=== PATIENT | female | born 1940 | race Caucasian/White ===

== ENCOUNTER 2017-10-15 15:40 | Inpatient (IN) | payer MEDICARE, OTHER ==
[2017-10-15] VITALS (13 sets, daily range): BP systolic 67–169; BP diastolic 42–92
[~2017-10-15] VITALS: Ht 134.6 cm; Wt 46.7 kg
[~2017-10-15 15:40] MED LIST: ADULT LOW DOSE81 MG PO; AMIODARONE 200200 MG PO; ASPIRIN 81MG TA81 MG PO; ATORVASTATIN CA10 MG PO; BED XX; CARAFATE1 GM PO; CARDIZEM CD 12120 MG PO; COMM1 XX; COREG3.125 MG PO; DAILY MULTIPLE PO; DUONEB 3 MG/3 ML3 ML IH; FAMOTIDINE 20MG20 MG PO; FLUTICASON0.05 MG/A1 NS; FLUTICASONE 50M16 GM; IPRATROPIUM BROM3 M1 IH; LASIX 20MG. TAB20 MG PO; LASIX20 MG PO; LISINOPRIL 10MG10 MG PO; LISINOPRIL 20MG20 MG PO; LISINOPRIL 5MG T5 MG PO; NICOTINE14 MG/24 H TD; NITROSTAT 0.4M0.4 MG SL; OXYGEN2 XX; PANTOPRAZOLE40 M1 PO; PREDNISONE20 MG PO; Pepcid20 MG PO; SINGULAIR 10 MG10 MG PO; SINGULAIR10 MG PO; WALK4 XX; XARELTO20 MG PO; ZOFRAN4 MG PO
--- NOTE | 2017-10-15 15:57 | Emergency Room Report ---
History of Present Illness Time Seen by [id number] Presenting Problem in Triage Pt arrived: Presenting Problem: Onset of symptoms date/time:/ or onset unknown for: Treatment Prior to Arrival: PREMISES TECHNICIAN Provided by: Sepsis Risk Assessment: Temp: B/P: MAP: Pulse: Resp: Recent fever? Clinical Suspician of Infection? Mental Status: Sepsis Risk: Have you (or family members/close friends) recently traveled outside the [place]? If Yes, where/when: Have you had exposure to infectious disease within the past month? TB? Other? Specify: Acute SOB, oxygen dependent, still smokes, called 911, [place] 98 per [place] [facility] [place] fever, productive cough, hx COPD, hx CHF, no calf pain. No vomiting. Has CP with cough. ALLERGIES Coded Allergies: phenobarbital (01/14/16) Home Medications Active Scripts Rivaroxaban (Xarelto) 20 MG PO DAILY #30 TAB Prov: 01/23/16 Amiodarone Hcl (Amiodarone 200MG) 200 MG PO DAILY #30 TAB Prov: 01/23/16 Prednisone (Prednisone 20MG Tab) 20 MG PO BID #10 TAB Prov: 01/23/16 Carvedilol (Coreg) 3.125 MG PO BID #60 TAB Prov: 01/23/16 ONDANSETRON HCL (Zofran 4MG Tab) 4 MG PO Q6HP PRN NAUSEA AND VOMITING #20 TAB Prov: 01/23/16 Device (Bed, Hospital) 1 UNIT XX UD #1 Prov: 01/23/16 Device (Walker, Rolling (4-Wheel)) 1 UNIT XX UD #1 Prov: 01/23/16 Device (Commode, Bedside) 1 UNIT XX UD #1 DEV Prov: 01/23/16 Reported Medications Device (Oxygen, Portable) 1 UNIT XX UD LISINOPRIL (Lisinopril) 10 MG PO DAILY ALBUTEROL-IPRATROPIUM (Iprat-Albut 0.5-3(2.5) MG/3 Ml) 3 ML IH QID Famotidine (Famotidine 20MG) 20 MG PO QHS FLUTICASONE PROPIONATE (Fluticasone 50MCG Nasal [place]) 1 SPRAY NA DAILY Furosemide (Lasix 20MG) 20 MG PO DAILY Aspirin (Adult Low Dose Aspirin EC) 81 MG PO DAILY Nitroglycerin (Nitrostat 0.4MG (1/150 Gr) Tabs #25) 0.4 MG SL [id number] PRN CHEST PAIN Montelukast Sodium (Singulair 10MG) 10 MG PO DAILY History Medical History General CAD? No Angina: Yes [place]: Yes Hypertension? Yes Hyperlipidemia? No CHF? No DVT? No PE? No COPD? Yes Asthma? Yes Anemia? No GERD? No Gastric ulcers? Yes GI Bleed? No Hernia? No Thyroid Problems? No Hypothyroidism? No CVA? No Seizures? No Diabetes? No Renal Insuffiency? No End Stage Renal Disease? No UTI? No Stones? No BPH? No GB Disease: Yes Nephritic Syndrome? No Asplenia? No Hepatitis? No Sickle Cell Disease? No Arthritis? No Migraines? No Cataracts? Yes Glaucoma? No MRSA? No HIV? No TB? No Anxiety? No Depression? No Cancer? No More? No Additional hx: 1. Atrial Fib 2. Allergic Rhinitis Immunization Hx DT/Tetanus Unknown Flu 2014-16FSN Pneumonia Received In Past Surgical Hx Previous Surgery?Y GALLBLADDER Family History Family Hx Diabetes No CAD No Hypertension No Hyperlipidemia No Cancer No TB No Social History Smoking Hx Packs/day < 1 Pack Alcohol Alcohol: No Review of Systems All Other Systems Reviewed and Negative Constitutional see HPI Respiratory see HPI Physical Exam Vital Signs Vital Signs Date Time Temp Pulse Resp B/P Pulse O2 O2 Flow FiO2 Ox Delivery Rate 10/15 1642 4 10/15 1642 4 10/15 1642 86 OXYGEN 4 10/15 1640 111 32 150/95 97 4 10/15 1557 97.4 110 34 160/92 92 4 General Appearance normal appearance, WD/WN, mild distress Eye Exam - bilateral eye normal exam, bilateral eye PERRL, bilateral eye EOMI Neck normal inspection, non-tender, supple, full range of motion Respiratory Status Yes: respiratory distress, trachea midline, chest symmetrical, non tender chest, use of accessory muscles, productive cough, non productive cough. No: tender on palpation, pain on inspiration, pain on expiration. Lung Sounds bilateral: decreased breath sounds. Cardiovascular normal exam, regular rate/rhythm, no peripheral edema, no gallop, no JVD, no murmur, no rub, normal peripheral pulses Gastrointestinal normal bowel sounds, normal exam, non tender, soft, no organomegaly, no pulsatile mass Extremities no calf tenderness, no pedal edema Strength 5 Upper Ext (L), 5 Upper Ext (R), 5 Lower Ext (L), 5 Lower Ext (R) Neurologic alert, normal exam, no motor/sensory deficits, oriented x 3 Glascow Coma Scale Glascow Coma Scale Response Value EYE response: 4 Spontaneously 4 MOTOR response: 6 OBEYS 6 VERBAL response: 5 Oriented & Converses 5 Total 15 Skin pallor Medical Decision Making LABS/Meds/Orders Pt receiving controlled substance in ED? No Results/Orders Laboratory Tests 10/15/17 1620: ABG pH 7.14 *L, ABG pCO2 (Temp Corrct 101.1 H, ABG pO2 (Temp Correct 60.9 L, ABG HCO3 33.6 H, ABG Total CO2 36.7 H, ABG O2 Sat (Calculated) 86.0 *L, ABG Base Excess 4.5 H, James Test ACCEPTABLE, Blood Gas Comments RIGHT RADIAL 10/15/17 1605: Influenza Type A Ag NOT DETECTED, Influenza Type B Ag NOT DETECTED 10/15/17 1546: Lactic Acid 1.9 10/15/17 1546: Sodium 139, Potassium 4.3, Chloride 98, Carbon Dioxide 39 H, BUN 14, Creatinine 0.7, Estimated Creat Clear 41 L, Estimated GFR (MDRD) 81, Glucose 180 H, Calcium 9.4, Total Bilirubin 0.8, AST 35, ALT 37, Alkaline Phosphatase 129 H, Creatine Kinase 58, CK-MB (CK-2) Rel Index 6.6 H, CK and CKMB Interp 3.8 H, Troponin I 0.58 H, Total Protein 8.0, Albumin 4.1, Globulin 3.9 H, Albumin/ Globulin Ratio 1.1, WBC 12.8 H, RBC 4.34, Hgb 14.6, Hct 45.8, MCV 105.5 H, RDW 12.1, Plt Count 220, MPV 10.5 H, Gran % 82.7 H, Gran # 10.6 H, Lymphocytes % 12.9, Monocytes % 4.0, Eosinophils % 0.1, Basophils % 0.4, Lymphocytes # 1.7, Monocytes # 0.5, Eosinophils # 0.0, Basophils # 0.1, PUBS MCHC 31.9, MCH 33.7 H Current Medication Orders Sig/Coral Start time Last Medication Dose Route Stop Time Status Admin Ceftriaxone Sodium 1 GM ONCE ONE 10/15 1700 DC Sodium Chloride 50 ML IV 10/15 1729 Albuterol 0 .STK-MED ONE 10/15 1618 DC INH Albuterol/Ipratropium 0 .STK-MED ONE 10/15 1618 DC INH Methylprednisolone 125 MG ONCE ONE 10/15 1545 DC 10/15 Sodium Succinate IV 10/15 1546 1549 Sodium Chloride 10 ML PRN PRN 10/15 1545 AC IV 10/16 1542 Methylprednisolone 0 .STK-MED ONE 10/15 1544 DC Sodium Succinate .ROUTE Orders Procedure Date/time Status Decision to admit 10/15 1700 Active LACTIC ACID 10/15 1646 Complete RT Pulse Oximetry, Provide 10/15 1641 Active RT O2 Installation/Change Set 10/15 1641 Active RT O2 Therapy, Monitor/Maintai 10/15 1641 Active RT BIPAP, Initial Setup/Change 10/15 1641 Active RT BIPAP, Monitor/Maintain 10/15 1641 Active RT Aerosol Treatment, Provide 10/15 1641 Active RT Aerosol Treatment, Provide 10/15 1641 Active INFLUENZA A&B ANTIGENS 10/15 1556 Complete ELECTROCARDIOGRAM REQUEST 10/15 1543 Active IV SALINE LOCK 10/15 1543 Active CULTURE, BLOOD 10/15 1543 Active CBC WITH AUTO DIFF 10/15 1543 Complete CARDIAC ENZYMES 10/15 1543 Complete CHEM 12 PROFILE 10/15 1543 Complete 12 LEAD EKG-GUI (INITIAL) 10/15 1540 Active CM/EKG CM/network services project manager Rhythm Sinus Tachycardia EKG no EKG for comparison, gross motion artifact; very tremulous, reviewed with Dr. Ferguson: he is not seeing ST elevation, agrees motion artifact; not candidate for laborer tree tapping at this time; watch serial trop XRAY/CT/US XRAY/CT/US XRAY chest XR interpretation by reviewed by me Xray Results abnormal, atelectasis at bases, L greater than R, suspect pneumonia Consult MD Physician Consult 1 Time Called 1636 Reason Pt. Condition Comments Dr. Ferguson reviewed EKG: recommends following troponins serially; not seeing elevation at this time; would not take to laborer tree tapping; recommends continuing pulmonary toilet. Physician Consult 2 Time Called 1637 Reason Pt. Condition, Admission Comments PCP Dr. [place] paged; initiated BiPap. family at bedside states son is POA and has texted that patient is DNI. Progress ED Progress Notes 1 Date 10/15/17 Time 1703 Comment will initiate Pt on Bipap. Family at bedside as well as d/w PCP: everyone agrees pt would not want to be intubated; will admit for pulmonary toilet short of intubation; patient in guarded condition and all aware. ABX initiated in ED. ED Progress Notes 2 Date 10/15/17 Time 1717 Comment Have repaged respiratory regarding stat placement of BiPap. They state on their way. Departure Departure Time of Disposition 1704 Disposition Still a Patient Clinical Impression Primary Impression: Respiratory distress Secondary Impressions: COPD exacerbation, Elevated troponin Condition STABLE Referrals Jack Langley MD (Family) ED Critical Care Critical Care Yes Time spent < 30 min Vital system(s) involved: Circulatory Failure (resp distress) I was present at bedside for Coordinating pt's care, Interpreting EKGs/Strips , During my initial exam, Reviewing lab results, Discussing pt condition, For re -examinations (consultations; d/w family) at [phone]
--- NOTE | 2017-10-15 15:57 | Emergency Room Report ---
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 Clinical Suspician of Infection? Mental Status: Sepsis Risk: Have you (or family members/close friends) recently traveled outside the [place]? If Yes, where/when: Have you had exposure to infectious disease within the past month? TB? Other? Specify: Acute SOB, oxygen dependent, still smokes, called 911, sats 98 per cent on arrival on [facility] [place]. Reports fever, productive cough, hx COPD, hx CHF, no calf pain. No vomiting. Has CP with cough. ALLERGIES Coded Allergies: phenobarbital (01/14/16) Home Medications Active Scripts Rivaroxaban (Xarelto) 20 MG PO DAILY #30 TAB Prov: 01/23/16 Amiodarone Hcl (Amiodarone 200MG) 200 MG PO DAILY #30 TAB Prov: 01/23/16 Prednisone (Prednisone 20MG Tab) 20 MG PO BID #10 TAB Prov: 01/23/16 Carvedilol (Coreg) 3.125 MG PO BID #60 TAB Prov: 01/23/16 ONDANSETRON HCL (Zofran 4MG Tab) 4 MG PO Q6HP PRN NAUSEA AND VOMITING #20 TAB Prov: 01/23/16 Device (Bed, Hospital) 1 UNIT XX UD #1 Prov: 01/23/16 Device (Walker, Rolling (4-Wheel)) 1 UNIT XX UD #1 Prov: 01/23/16 Device (Commode, Bedside) 1 UNIT XX UD #1 DEV Prov: 01/23/16 Reported Medications Device (Oxygen, Portable) 1 UNIT XX UD LISINOPRIL (Lisinopril) 10 MG PO DAILY ALBUTEROL-IPRATROPIUM (Iprat-Albut 0.5-3(2.5) MG/3 Ml) 3 ML IH QID Famotidine (Famotidine 20MG) 20 MG PO QHS FLUTICASONE PROPIONATE (Fluticasone 50MCG Nasal [place]) 1 SPRAY NA DAILY Furosemide (Lasix 20MG) 20 MG PO DAILY Aspirin (Adult Low Dose Aspirin EC) 81 MG PO DAILY Nitroglycerin (Nitrostat 0.4MG (1/150 Gr) Tabs #25) 0.4 MG SL [id number] PRN CHEST PAIN Montelukast Sodium (Singulair 10MG) 10 MG PO DAILY History Medical History General CAD? No Angina: Yes [place]: Yes Hypertension? Yes Hyperlipidemia? No CHF? No DVT? No PE? No COPD? Yes Asthma? Yes Anemia? No GERD? No Gastric ulcers? Yes GI Bleed? No Hernia? No Thyroid Problems? No Hypothyroidism? No CVA? No Seizures? No Diabetes? No Renal Insuffiency? No End Stage Renal Disease? No UTI? No Stones? No BPH? No GB Disease: Yes Nephritic Syndrome? No Asplenia? No Hepatitis? No Sickle Cell Disease? No Arthritis? No Migraines? No Cataracts? Yes Glaucoma? No MRSA? No HIV? No TB? No Anxiety? No Depression? No Cancer? No More? No Additional hx: 1. Atrial Fib 2. Allergic Rhinitis Immunization Hx DT/Tetanus Unknown Flu 2014-16FSN Pneumonia Received In Past Surgical Hx Previous Surgery?Y GALLBLADDER Family History Family Hx Diabetes No CAD No Hypertension No Hyperlipidemia No Cancer No TB No Social History Smoking Hx Packs/day < 1 Pack Alcohol Alcohol: No Review of Systems All Other Systems Reviewed and Negative Constitutional see HPI Respiratory see HPI Physical Exam Vital Signs Vital Signs Date Time Temp Pulse Resp B/P Pulse O2 O2 Flow FiO2 Ox Delivery Rate 10/15 1642 4 10/15 1642 4 10/15 1642 86 OXYGEN 4 10/15 1640 111 32 150/95 97 4 10/15 1557 97.4 110 34 160/92 92 4 General Appearance normal appearance, WD/WN, mild distress Eye Exam - bilateral eye normal exam, bilateral eye PERRL, bilateral eye EOMI Neck normal inspection, non-tender, supple, full range of motion Respiratory Status Yes: respiratory distress, trachea midline, chest symmetrical, non tender chest, use of accessory muscles, productive cough, non productive cough. No: tender on palpation, pain on inspiration, pain on expiration. Lung Sounds bilateral: decreased breath sounds. Cardiovascular normal exam, regular rate/rhythm, no peripheral edema, no gallop, no JVD, no murmur, no rub, normal peripheral pulses Gastrointestinal normal bowel sounds, normal exam, non tender, soft, no organomegaly, no pulsatile mass Extremities no calf tenderness, no pedal edema Strength 5 Upper Ext (L), 5 Upper Ext (R), 5 Lower Ext (L), 5 Lower Ext (R) Neurologic alert, normal exam, no motor/sensory deficits, oriented x 3 Glascow Coma Scale Glascow Coma Scale Response Value EYE response: 4 Spontaneously 4 MOTOR response: 6 OBEYS 6 VERBAL response: 5 Oriented & Converses 5 Total 15 Skin pallor Medical Decision Making LABS/Meds/Orders Pt receiving controlled substance in ED? No Results/Orders Laboratory Tests 10/15/17 1620: ABG pH 7.14 *L, ABG pCO2 (Temp Corrct 101.1 H, ABG pO2 (Temp Correct 60.9 L, ABG HCO3 33.6 H, ABG Total CO2 36.7 H, ABG O2 Sat (Calculated) 86.0 *L, ABG Base Excess 4.5 H, James Test ACCEPTABLE, Blood Gas Comments RIGHT RADIAL 10/15/17 1605: Influenza Type A Ag NOT DETECTED, Influenza Type B Ag NOT DETECTED 10/15/17 1546: Lactic Acid 1.9 10/15/17 1546: Sodium 139, Potassium 4.3, Chloride 98, Carbon Dioxide 39 H, BUN 14, Creatinine 0.7, Estimated Creat Clear 41 L, Estimated GFR (MDRD) 81, Glucose 180 H, Calcium 9.4, Total Bilirubin 0.8, AST 35, ALT 37, Alkaline Phosphatase 129 H, Creatine Kinase 58, CK-MB (CK-2) Rel Index 6.6 H, CK and CKMB Interp 3.8 H, Troponin I 0.58 H, Total Protein 8.0, Albumin 4.1, Globulin 3.9 H, Albumin/ Globulin Ratio 1.1, WBC 12.8 H, RBC 4.34, Hgb 14.6, Hct 45.8, MCV 105.5 H, RDW 12.1, Plt Count 220, MPV 10.5 H, Gran % 82.7 H, Gran # 10.6 H, Lymphocytes % 12.9, Monocytes % 4.0, Eosinophils % 0.1, Basophils % 0.4, Lymphocytes # 1.7, Monocytes # 0.5, Eosinophils # 0.0, Basophils # 0.1, PUBS MCHC 31.9, MCH 33.7 H Current Medication Orders Sig/Coral Start time Last Medication Dose Route Stop Time Status Admin Ceftriaxone Sodium 1 GM ONCE ONE 10/15 1700 DC Sodium Chloride 50 ML IV 10/15 1729 Albuterol 0 .STK-MED ONE 10/15 1618 DC INH Albuterol/Ipratropium 0 .STK-MED ONE 10/15 1618 DC INH Methylprednisolone 125 MG ONCE ONE 10/15 1545 DC 10/15 Sodium Succinate IV 10/15 1546 1549 Sodium Chloride 10 ML PRN PRN 10/15 1545 AC IV 10/16 1542 Methylprednisolone 0 .STK-MED ONE 10/15 1544 DC Sodium Succinate .ROUTE Orders Procedure Date/time Status Decision to admit 10/15 1700 Active LACTIC ACID 10/15 1646 Complete RT Pulse Oximetry, Provide 10/15 1641 Active RT O2 Installation/Change Set 10/15 1641 Active RT O2 Therapy, Monitor/Maintai 10/15 1641 Active RT BIPAP, Initial Setup/Change 10/15 1641 Active RT BIPAP, Monitor/Maintain 10/15 1641 Active RT Aerosol Treatment, Provide 10/15 1641 Active RT Aerosol Treatment, Provide 10/15 1641 Active INFLUENZA A&B ANTIGENS 10/15 1556 Complete ELECTROCARDIOGRAM REQUEST 10/15 1543 Active IV SALINE LOCK 10/15 1543 Active CULTURE, BLOOD 10/15 1543 Active CBC WITH AUTO DIFF 10/15 1543 Complete CARDIAC ENZYMES 10/15 1543 Complete CHEM 12 PROFILE 10/15 1543 Complete 12 LEAD EKG-GUI (INITIAL) 10/15 1540 Active CM/EKG CM/country printer Rhythm Sinus Tachycardia EKG no EKG for comparison, gross motion artifact; very tremulous, reviewed with Dr. Ferguson: he is not seeing ST elevation, agrees motion artifact; not candidate for cardiac cath lab manager at this time; watch serial trop XRAY/CT/US XRAY/CT/US XRAY chest XR interpretation by reviewed by me Xray Results abnormal, atelectasis at bases, L greater than R, suspect pneumonia Consult MD Physician Consult 1 Time Called 1636 Reason Pt. Condition Comments Dr. Ferguson reviewed EKG: recommends following troponins serially; not seeing elevation at this time; would not take to cardiac cath lab manager; recommends continuing pulmonary toilet. Physician Consult 2 Time Called 1637 Reason Pt. Condition, Admission Comments PCP Dr. Edison paged; initiated BiPap. family at bedside states son is POA and has texted that patient is DNI. Progress ED Progress Notes 1 Date 10/15/17 Time 1703 Comment will initiate Pt on Bipap. Family at bedside as well as d/w PCP: everyone agrees pt would not want to be intubated; will admit for pulmonary toilet short of intubation; patient in guarded condition and all aware. ABX initiated in ED. ED Progress Notes 2 Date 10/15/17 Time 1717 Comment Have repaged respiratory regarding stat placement of BiPap. They state on their way. Departure Departure Time of Disposition 1704 Disposition Still a Patient Clinical Impression Primary Impression: Respiratory distress Secondary Impressions: COPD exacerbation, Elevated troponin Condition STABLE Referrals Jack Langley MD (Family) ED Critical Care Critical Care Yes Time spent < 30 min Vital system(s) involved: Circulatory Failure (resp distress) I was present at bedside for Coordinating pt's care, Interpreting EKGs/Strips , During my initial exam, Reviewing lab results, Discussing pt condition, For re -examinations (consultations; d/w family) at 2053
[2017-10-15 16:03] LABS: HEMOGLOBIN 14.6 g/dL (12.2-16.2); LYMPH # 1.7 K/mm3 (0.7-4.5); LYMPH % 12.9 % (10-50.0)
--- OUTSIDE RECORDS SUMMARY | 2017-10-15 16:13 | External Medical Summary Rpt ---
Author Author OLIV[address], [employer] Organization [employer] Address Unknown Phone Unavailable
--- OUTSIDE RECORDS SUMMARY | 2017-10-15 16:13 | External Medical Summary Rpt | CCD ---
Author Author OLIVA Address Unknown Phone [email or web address] Purpose Continuity of Care Document - through 2016
--- OUTSIDE RECORDS SUMMARY | 2017-10-15 16:13 | External Medical Summary Rpt | CCD ---
Author Author , DEBBIE BAPTISTE Address Unknown Phone [email or web address] Immunization Name Date Rout CVX Reac Dose Comm Prov Is Faci e tion ent ider Refu lity Give sed n Infl 08-1 Intr 135 0.5 Hist D049 No D049 uenz 5-20 amus mL oric 01 01 a, 17 cula al High r Info rmat Dose ion - Sour ce Unsp ecif ied
--- OUTSIDE RECORDS SUMMARY | 2017-10-15 16:13 | External Medical Summary Rpt | CCD ---
Author Author OLIVA Address Unknown Phone Purpose Continuity of Care Document - through 2016
--- OUTSIDE RECORDS SUMMARY | 2017-10-15 16:13 | External Medical Summary Rpt | CCD ---
Author Author [employer] Organization [employer] Address Unknown Phone Unavailable Purpose Continuity of Care Document - through 2016
--- OUTSIDE RECORDS SUMMARY | 2017-10-15 16:13 | External Medical Summary Rpt | CCD ---
Author Author , DEBBIE BAPTISTE Address Unknown Phone [email or web address] Immunization Name Date Rout CVX Reac Dose Comm Prov Is Faci e tion ent ider Refu lity Give sed n Infl 08-1 Intr 135 0.5 Hist D049 No D049 uenz 5-20 amus mL oric 01 01 a, 17 cula al High r Info rmat Dose ion - Sour ce Unsp ecif ied
[2017-10-15 16:37] LABS: ARTERIAL PO2 60.9 MMHG (80-100)
[2017-10-15 16:38] LABS: ALLEN'S TEST ACCEPTABLE; ARTERIAL ABE 4.5 MMOL/L (-2.4-+2.3); ARTERIAL TCO2 36.7 MMOL/L (23-27); OXYGEN 36%
--- OUTSIDE RECORDS SUMMARY | 2017-10-15 17:07 | External Medical Summary Rpt | CCD ---
Author Author , DEBBIE BAPTISTE Address Unknown Phone [email or web address] Immunization Name Date Rout CVX Reac Dose Comm Prov Is Faci e tion ent ider Refu lity Give sed n Infl 08-1 Intr 135 0.5 Hist D049 No D049 uenz 5-20 amus mL oric 01 01 a, 17 cula al High r Info rmat Dose ion - Sour ce Unsp ecif ied
--- OUTSIDE RECORDS SUMMARY | 2017-10-15 17:07 | External Medical Summary Rpt | CCD ---
Author Author , DEBBIE BAPTISTE Address Unknown Phone [email or web address] Immunization Name Date Rout CVX Reac Dose Comm Prov Is Faci e tion ent ider Refu lity Give sed n Infl 08-1 Intr 135 0.5 Hist D049 No D049 uenz 5-20 amus mL oric 01 01 a, 17 cula al High r Info rmat Dose ion - Sour ce Unsp ecif ied
--- OUTSIDE RECORDS SUMMARY | 2017-10-15 17:07 | External Medical Summary Rpt | CCD ---
Author Author , DEBBIE BAPTISTE Address Unknown Phone [email or web address] Purpose Continuity of Care Document - 10-15-2017 through 2016 Results Labs Lab Lab Date Result Refere Interp Status Commen Order Detail nces retati t Range on Gas panel in Arterial blood (10-15-2017 16:20) Arteria ACCEPTA complet l 017 BLE ed patency 16:20 Wrist artery --pre arteria l punctur e SOURCE RIGHT complet 017 RADIAL ed 16:20 Influenza virus A+B Ag [Presence] in Unspecified specimen (10-15-2017 16:05) Influen NOT NOT complet za 017 DETECTE DETECTD ed virus A 16:05 D Ag [Presen ce] in Unspeci fied specime n Influen NOT NOT complet za 017 DETECTE DETECTD ed virus B 16:05 D Ag [Presen ce] in Unspeci fied specime n
--- OUTSIDE RECORDS SUMMARY | 2017-10-15 17:07 | External Medical Summary Rpt ---
Author Author BINTASONYA Way, [employer] Organization [employer] Address Unknown Phone Unavailable Results Gas panel in Arterial blood Observa Value Referen Units Interpr Notes Date tion ce etation Range Base -2.4-+2.3 MMOL/L High No Oct 15 excess in informati 2017 4:20 Arterial on in PM blood source data Arteria ACCEPTA No No No No Oct 15 l BLE informa informa informa informa 2017 patency tion in tion in tion in tion in 4:20 PM Wrist source source source source artery data data data data --pre arteria l punctur e Bicarbona 22.0 - MMOL/L High No Oct 15 te 26.0 informati 2016 4:20 [Moles/vo on in PM lume] in source Arterial data blood Oxygen No No No No Oct 15 content informati informati informati informati 2017 4:20 in on in on in on in on in PM Arterial source source source source blood data data data data Carbon 35.0 - MMHG High Oct 15 dioxide 45.0 2016 4:20 [Partial CRITICAL PM pressure] RESULTS in Arterial RESU blood LTS CALLED TO: URIEL ROE 10/15/17 1637 Veronica Cordoba [place] pH of 7.35 - MMOL/L Low alert Oct 15 Arterial 7.45 2016 4:20 blood CRITICAL PM RESULTS RESU LTS CALLED TO: URIEL MONTANA 10/15/17 1637 Veronica Cordoba [place] Oxygen 80 - 100 MMHG Low No Oct 15 [Partial informati 2017 4:20 pressure] on in PM in source Arterial data blood Oxygen 90 - 100 % Low alert No Oct 15 saturatio informati 2016 4:20 n.calcula on in PM frank from source oxygen data partial pressure in Arterial blood SOURCE RIGHT No No No No Oct 15 RADIAL informa informa informa informa 2017 tion in tion in tion in tion in 4:20 PM source source source source data data data data Carbon 23 - 27 MMOL/L High No Oct 15 dioxide, informati 2017 4:20 total on in PM [Moles/vo source lume] in data Arterial blood Influenza virus A+B Ag [Presence] in Unspecified specimen Observa Value Referen Units Interpr Notes Date ti ce etation Range Influen NOT NOT No No No Oct 15 za DETECTE DETECTD informa informa informa 2017 virus A D tion in tion in tion in 4:05 PM Ag source source source [Presen data data data ce] in Unspeci fied specime n Influen NOT NOT No No No Oct 15 za DETECTE DETECTD informa informa informa 2017 virus B D tion in tion in tion in 4:05 PM Ag source source source [Presen data data data ce] in Unspeci fied specime n Cardiac enzymes Observa Value Referen Units Interpr Notes Date tion ce etation Range Creatine 0 - 4.0 U/L High No Oct 15 kinase.MB informati 2016 3:46 /Creatine on in PM source kinase.to data ria [Ratio] in Serum or Plasma Creatine 0.0 - 3.6 ng/mL High No Oct 15 kinase.MB informati 2016 3:46 on in PM [Mass/vol source ume] in data Serum or Plasma Creatine 26 - 192 U/L Normal No Oct 15 kinase informati 2017 3:46 [Enzymati on in PM c source activity/ data volume] in Serum or Plasma Troponin 0.00 - ng/mL High Oct 15 I.cardiac 0.06 2016 3:46 CRITICAL PM [Mass/vol RESULTS ume] in Serum or RESU Plasma LTS CALLED TO: DENAE 10/15/17 1628 Cracraft, Deepa> 0.5 IS CONSISTEN T WITH MYOCARDIA L ISCHEMIA OR INFARCTIO N Comprehensive metabolic 2000 panel in Serum or Plasma Observa Value Referen Units Interpr Notes Date tion ce etation Range Albumin/G 1.1 - 1.8 No Normal No Oct 15 lobulin informati informati 2016 3:46 [Mass on in on in PM ratio] in source source Serum or data data Plasma Albumin 3.4 - 5.0 gm/dL Normal No Oct 15 [Mass/vol informati 2016 3:46 ume] in on in PM Serum or source Plasma data Alkaline 46 - 116 U/L High No Oct 15 phosphata informati 2016 3:46 se on in PM [Enzymati source c data activity/ volume] in Serum or Plasma Bilirubin 0.2 - 1.0 mg/dL Normal No Oct 15 .total informati 2016 3:46 [Mass/vol on in PM ume] in source Serum or data Plasma Urea 7 - 18 mg/dL Normal No Oct 15 nitrogen informati 2016 3:46 [Mass/vol on in PM ume] in source Serum or data Plasma Calcium 8.5 - mg/dL Normal No Oct 15 [Mass/vol 10.1 informati 2016 3:46 ume] in on in PM Serum or source Plasma data Chloride 98 - 107 mmoL/L Normal Oct 15 [Moles/vo informati 2016 3:46 lume] in on in PM Serum or source Plasma data Carbon 21.0 - mmoL/L High No Oct 15 dioxide, 32.0 informati 2017 3:46 total on in PM [Moles/vo source lume] in data Serum or Plasma Creatinin 0.55 - mg/dL Normal No Oct 15 e 1.02 informati 2016 3:46 [Mass/vol on in PM ume] in source Serum or data Plasma Creatinin 50 - 200 ML/MIN Low No Oct 15 e renal informati 2016 3:46 clearance on in PM source predicted data by Cockcroft -Gault formula Estimated 59- ML/MIN No REFERENCE Oct 15 informati RANGE: 2017 3:46 glomerula on in >60 PM r source ML/MIN/1. filtratio data 73 SQUARE n rate METERSIf (GF this patient is -A merican, then multiply theresult by 1.210. Globulin 1.3 - 3.2 gm/dL High No Oct 15 [Mass/vol informati 2016 3:46 ume] in on in PM Serum source data Glucose 74 - 106 mg/dL High No Oct 15 [Mass/vol informati 2016 3:46 ume] in on in PM Serum or source Plasma data Potassium 3.5 - 5.1 mmoL/L Normal Oct 152016 3:46 [Moles/vo on in PM lume] in source Serum or data Plasma Sodium 136 - 145 mmoL/L Normal Oct 15 [Moles/vo 2016 3:46 lume] in on in PM Serum or source Plasma data Aspartate 15 - 37 U/L Normal Oct 152016 3:46 aminotran on in PM sferase source [Enzymati data c activity/ volume] in Serum or Plasma Alanine 12 - 78 U/L Normal Oct 15 aminotran 2016 3:46 sferase on in PM [Enzymati source c data activity/ volume] in Serum or Plasma Protein 6.4 - 8.2 gm/dL Normal Oct 15 [Mass/vol 2016 3:46 ume] in on in PM Serum or source Plasma data CBC W Auto Differential panel in Blood Observa Value Referen Units Interpr Notes Date tion ce etation Range Basophils 0 - 0.2 K/MM3 Normal Oct 152016 3:46 [#/volume on in PM ] in source Blood by data Automated count Basophils 0.1 - 2.0 % Normal No Oct 152016 3:46 leukocyte on in PM s in source Blood by data Automated count Eosinophi 0.0 - 0.4 K/mm3 Normal Oct 15 ls 2016 3:46 [#/volume on in PM ] in source Blood by data Automated count Eosinophi 0.1 - % Normal Oct 15 ls/100 12.0 ati 2016 3:46 leukocyte on in PM s in source Blood by data Automated count Granulocy 1.8 - 7.8 K/mm3 High Oct 15 micah ati 2016 3:46 [#/volume on in PM ] in source Blood by data Automated count Granulocy 37.0 - % High Oct 15 micah/100 80.0 ati 2016 3:46 leukocyte on in PM s in source Blood by data Automated count Hematocri 37.0 - % Normal Oct 15 t [Volume 47.0 2016 3:46 on in PM Fraction] source of Blood data Hemoglobi 12.2 - g/dL Normal Oct 15 n 16.2 ati 2016 3:46 [Mass/vol on in PM ume] in source Blood data Lymphocyt 0.7 - 4.5 K/mm3 Normal No Oct 15 es informati 2016 3:46 [#/volume on in PM ] in source Unspecifi data ed specimen by Automated count Lymphocyt 10 - 50.0 % Normal No Oct 15 es informati 2016 3:46 [#/volume on in PM ] in source Unspecifi data ed specimen by Automated count Erythrocy 27 - 31.2 pg High No Oct 15 te mean informati 2016 3:46 corpuscul on in PM ar source hemoglobi data n [Entitic mass] Erythrocy 31.8 - g/dl Normal No Oct 15 te mean 35.4 informati 2016 3:46 corpuscul on in PM ar source hemoglobi data n concentra tion [Mass/vol ume] by Automated count Erythrocy 82.2 - fl High No Oct 15 te mean 97.8 informati 2016 3:46 corpuscul on in PM ar volume source [Entitic data volume] by Automated count Monocytes 0.1 - 1.0 K/mm3 Normal No Oct 15 informati 2016 3:46 [#/volume on in PM ] in source Blood by data Automated count Monocytes 1.7 - 9.3 % Normal No Oct 15 /100 informati 2017 3:46 leukocyte on in PM s in source Blood by data Automated count Platelet 7.4 - fl High Oct 15 mean 10.4 informati 2017 3:46 volume on in PM [Entitic source volume] data in Blood by Automated count Platelets 142 - 424 K/mm3 No No Oct 15 informati informati 2017 3:46 [#/volume on in on in PM ] in source source Blood data data Erythrocy 4.2 - 5.4 M/mm3 Normal No Oct 15 micah informati 2017 3:46 [#/volume on in PM ] in source Amniotic data fluid Erythrocy 11.5 - % Normal No Oct 15 te 17.5 informati 2016 3:46 distribut on in PM ion width source [Entitic data volume] by Automated count Leukocyte 4.8 - K/MM3 High No Oct 15 s 10.8 informati 2016 3:46 [#/volume on in PM ] in source Blood data
--- OUTSIDE RECORDS SUMMARY | 2017-10-15 17:07 | External Medical Summary Rpt | CCD ---
Author Author , DEBBIE BAPTISTE Address Unknown Phone [email or web address] Purpose Continuity of Care Document - 10-15-2017 [...]
--- NOTE | 2017-10-15 17:21 | RADIOLOGY REPORT PS360 ---
CHEST-PORTABLE HISTORY: COPD very SOB cough w/ sputumCOPD Patient Age: 77 years: Female Ordering Physician: Johanna Rodriguez MD TECHNIQUE: AP portable chest COMPARISON :01/14/2016 CXR & 01/16/2016 FINDINGS COPD hyperexpansion. Flattened diaphragm. . There is a slight accentuation of markings toward the left base as well as right. This mainly reflects the higher contrast technique. Doubt early infiltrate and favor more likely chronic changes but if symptoms progress consider follow-up. The upper lung perkins are hyperexpanded and appear stable. The heart is upper normal in size robin and mediastinal structures satisfactory. Chest wall intact no pneumothorax no pleural effusion. IMPRESSION: COPD. Hyperexpansion Emphysema Nothing definitely acute. Slight coarsening markings the lung bases most likely reflecting chronic changes noted above
[2017-10-15 19:34] LABS: ARTERIAL ABE 1.8 MMOL/L (-2.4-+2.3); ARTERIAL PO2 122.2 MMHG (80-100); ARTERIAL TCO2 33.8 MMOL/L (23-27)
[2017-10-15 20:35] LABS: URINE BLOOD TRACE-INTACT (NEG)
[2017-10-15 20:41] LABS: URINE BILIRUBIN - DIPSTICK 1+ (NEG)
[2017-10-16] VITALS (32 sets, daily range): BP systolic 71–128; BP diastolic 47–76
[2017-10-16 06:05] LABS: HEMOGLOBIN 13.3 g/dL (12.2-16.2); LYMPH # 1.1 K/mm3 (0.7-4.5); LYMPH % 5.7 % (10-50.0)
[2017-10-16 06:22] LABS: NEUTROPHILS 64 % (42-76)
--- NOTE | 2017-10-16 08:49 | HISTORY AND PHYSICAL REPORT ---
History and Physical ([facility]) Date of admission: 10/15/17 Chief complaint: SOA, CP History: History of Present Illness: Ms. Aflonso is a 77yo female with oxygen dependent COPD. She still smokes. Her daughter states she had been feeling poorly for the past few days. Yesterday around 4:30am she called her daughter to come and sit with her because she was scared. Her daughter states she had to go to work so her granddaughter came to sit with her. When she got home from work around 4:30pm, the patient's status declined rapidly. She started complaining that "it hurt" and held her chest and then got extremely SOA and became nonresponsive. Her family called 911 and she was transported to the ER. She had had a LGF and productive cough. She was evaluated in the ER and her cardiac enzymes were elevated, her CO2 was elevated, and her WBC was elevated. She was started on abx and BIPAP. Dr. Ferguson was consulted but stated he would not take her to the clinical laboratory assistant with her respiratory status. Her daugther states she has not been awake all night. Past Medical History: Medical History: CAD? No Angina: Yes CT: Yes Hypertension? Yes Hyperlipidemia? No CHF? Yes DVT? No PE? No COPD? Yes Asthma? Yes Anemia? No GERD? No Gastric ulcers? Yes GI Bleed? No Hernia? No Thyroid Problems? No Hypothyroidism? No CVA? No Seizures? No Diabetes? No Renal Insuffiency? No UTI? No Stones? No BPH? No GB Disease: Yes Nephritic Syndrome? No Asplenia? No Hepatitis? No Sickle Cell Disease? No Arthritis? No Migraines? No Cataracts? Yes Glaucoma? No MRSA? No HIV? No TB? No Anxiety? No Depression? No Cancer? No More? No Additional hx: 1. Atrial Fib 2. Allergic Rhinitis Surgical history: Previous Surgery?Y GALLBLADDER PUD Medications: Active Scripts Carvedilol (Coreg) 3.125 MG PO BID #60 TAB Prov: 01/23/16 Device (Bed, Hospital) 1 UNIT XX UD #1 Prov: 01/23/16 Device (Walker, Rolling (4-Wheel)) 1 UNIT XX UD #1 Prov: 01/23/16 Device (Commode, Bedside) 1 UNIT XX UD #1 DEV Prov: 02/25/16 Reported Medications Device (Oxygen, Portable) 1 UNIT XX UD LISINOPRIL (Lisinopril) 10 MG PO DAILY Famotidine (Famotidine 20MG) 20 MG PO QHS Aspirin (Adult Low Dose Aspirin EC) 81 MG PO DAILY Nitroglycerin (Nitrostat 0.4MG (1/150 Gr) Tabs #25) 0.4 MG SL [id number] PRN CHEST PAIN Potassium Chloride (Klor-Con M20) 20 MEQ PO DAILY Furosemide (Lasix 80MG) 80 MG PO DAILY LEVOTHYROXINE SOD (Levothyroxine 0.025MG) 0.025 MG PO DAILY SOTALOL HCL (Sotalol) 80 MG PO BID Pantoprazole Sodium (Pantoprazole 40MG) 40 MG PO DAILY Montelukast Sodium (Singulair 10MG) 10 MG PO DAILY Allergies: Coded Allergies: phenobarbital (01/14/16) Family History: Family history: Postive for: CAD. Negative for: DM. Social History: Smoking Hx Tobacco: Yes Smoker: Current Every Day Smoker Type: Cigarettes Packs/day: 1 1/2 - 2 Packs Are you exposed to second hand No Alcohol: Alcohol: No Hx of Drug Use: Drug Use? No Review of Systems: Patient unresponsive? Yes (ROS obtained from daughter) Constitutional Positive for: fatigue, lethargy, malaise, weak. ENT Positive for: nasal congestion. No: sore throat. Cardiovascular Positive for: chest pain, palpitations. No: edema. Respiratory Positive for: shortness of air, productive cough (sputum), wheezing. GI Positive for: nausea. No: abdominal pain, diarrhea, vomitting. (female) No: frequency, hematuria. Neurological Positive for: weakness. Musculoskeletal Positive for: joint pain (back and hips). Physical Exam: Vital signs: 1ST Vital Signs Result Date Time Pulse Ox 92 10/15 1557 B/P 160/92 10/15 1557 O2 Flow Rate 4 10/15 1557 Temp 97.4 10/15 1557 Pulse 110 10/15 1557 Resp 34 10/15 1557 O2 Delivery OXYGEN 10/15 1642 Exam: General appearance: Pt not responsive, on BIPAP Eyes: PERRLA ENT: nose normal, pharynx normal, dry mucous membranes Neck: non-tender, supple Cardiovascular: regular rate & rhythm Respiratory: diminished breath sounds bilaterally ABD: non-distended, normal bowel sounds, no rebound, soft, no tenderness, no guarding Extremities: no peripheral edema Skin: normal color Lab data: Labs: Laboratory Tests 10/16/17 0545: Sodium 141, Potassium 4.6, Chloride 103, Carbon Dioxide 33 H, BUN 24 H, Creatinine 0.6, Estimated Creat Clear 53, Estimated GFR (MDRD) 96, Glucose 157 H, Calcium 8.9, WBC 19.1 H, RBC 3.98 L, Hgb 13.3, Hct 43.0, MCV 107.9 H, RDW 12.2, Plt Count 184, MPV 11.0 H, Gran % 90.6 H, Gran # 17.3 H, Total Counted 100, Lymphocytes % 5.7 L, Monocytes % 3.4, Eosinophils % 0.1, Basophils % 0.2, Neutrophils 64, Band Neutrophils 25 H, Lymphocytes (Manual) 10, Lymphocytes # 1.1, Monocytes (Manual) 1 L, Monocytes # 0.7, Eosinophils # 0.0, Basophils # 0.0, Platelet Estimate NORMAL, Polychromasia SL., Hypochromasia 2+, Macrocytosis 2+, PUBS MCHC 31.0 L, MCH 33.4 H 10/15/17 1930: Urine Color ISSAC, Urine Appearance SL CLOUDY, Urine pH 5.5, Ur Specific [place] >= 1.030, Urine Protein 2+ H, Urine Ketones NEGATIVE, Urine Blood TRACE-INTACT, Urine Nitrate POSITIVE H, Urine Bilirubin 1+ H, Urine Urobilinogen 2.0, Ur Leukocyte Esterase NEGATIVE, Urine RBC 3-5, Urine WBC 5-10, Amorphous Sediment 4 +, Urine Bacteria TRACE, Urine Mucus 4+, Urine Glucose NEGATIVE 10/15/17 1926: ABG pH 7.14 *L, ABG pCO2 (Temp Corrct 93.9 H, ABG pO2 (Temp Correct 122.2 H, ABG HCO3 30.9 H, ABG Total CO2 33.8 H, ABG O2 Sat (Calculated) 97.4, ABG Base Excess 1.8 10/15/17 1904: Troponin I 1.86 H 10/15/17 1620: ABG pH 7.14 *L, ABG pCO2 (Temp Corrct 101.1 H, ABG pO2 (Temp Correct 60.9 L, ABG HCO3 33.6 H, ABG Total CO2 36.7 H, ABG O2 Sat (Calculated) 86.0 *L, ABG Base Excess 4.5 H, James Test ACCEPTABLE, Blood Gas Comments RIGHT RADIAL 10/15/17 1605: Influenza Type A Ag NOT DETECTED, Influenza Type B Ag NOT DETECTED 10/15/17 154: Lactic Acid 1.9 10/15/17 154: Sodium 139, Potassium 4.3, Chloride 98, Carbon Dioxide 39 H, BUN 14, Creatinine 0.7, Estimated Creat Clear 41 L, Estimated GFR (MDRD) 81, Glucose 180 H, Calcium 9.4, Total Bilirubin 0.8, AST 35, ALT 37, Alkaline Phosphatase 129 H, Creatine Kinase 58, CK-MB (CK-2) Rel Index 6.6 H, CK and CKMB Interp 3.8 H, Troponin I 0.58 H, Total Protein 8.0, Albumin 4.1, Globulin 3.9 H, Albumin/ Globulin Ratio 1.1, WBC 12.8 H, RBC 4.34, Hgb 14.6, Hct 45.8, MCV 105.5 H, RDW 12.1, Plt Count 220, MPV 10.5 H, Gran % 82.7 H, Gran # 10.6 H, Lymphocytes % 12.9, Monocytes % 4.0, Eosinophils % 0.1, Basophils % 0.4, Lymphocytes # 1.7, Monocytes # 0.5, Eosinophils # 0.0, Basophils # 0.1, PUBS MCHC 31.9, MCH 33.7 H Microbiology 10/15 1930 URINE CATH: Urine Culture - RES 10/15 1546 BLOOD: Anaerobic Blood Culture - RECD 10/15 1546 BLOOD: Aerobic Blood Culture - RECD 10/15 1546 BLOOD: Anaerobic Blood Culture - RECD 10/15 1546 BLOOD: Aerobic Blood Culture - RECD Radiology results: Results: CXR - COPD. Hyperexpansion Emphysema. Nothing definitely acute. Slight coarsening markings the lung bases most likely reflecting chronic changes noted above Diagnosis(es): 1. Acute respiratory failure with hypercapnia Status: Acute 2. Elevated troponin Status: Acute 3. Leukocytosis Status: Acute 4. Chronic obstructive lung disease Status: Chronic Plan: Will continue BIPAP as ABG has improved since she was placed on BIPAP. Will continue abx. Patient's family does not want her to be intubated. Will monitor for now. (Diana Tabares) Diagnosis(es): 1. Acute respiratory failure with hypercapnia Status: Acute 2. Elevated troponin Status: Acute 3. Acute non-ST segment elevation myocardial infarction Status: Chronic 4. Leukocytosis Status: Acute 5. Chronic obstructive lung disease Status: Chronic 6. Altered mental status 7. Acute respiratory acidosis 8. Coronary atherosclerosis Status: Chronic 9. History of atrial fibrillation 10. CHF (congestive heart failure), NYHA class IV Status: Resolved 11. Tobacco use Status: Chronic 12. GERD (gastroesophageal reflux disease) Plan: Patient seen and agree with above note. Discussed poor prognosis with family. Continue current treatment. (Jack Langley MD) at 0901 at 0907
[2017-10-16] MEDS ORDERED: KLOR-CON M2020 MEQ PO (08:59)
[2017-10-16] MEDS ORDERED: LEVOTHYROXIN0.025 M3 PO (08:59)
[2017-10-16] MEDS ORDERED: LASIX 80MG. TAB80 MG PO (08:59)
[2017-10-16] MEDS ORDERED: BETAPACE 80MG T80 MG PO (08:59)
[2017-10-16] MEDS ORDERED: PANTOPRAZOLE SO40 MG PO (09:00)
--- NOTE | 2017-10-16 11:30 | PHARMACY CLINIC NOTE ---
Patient Demographics Patient Demographics Admission date: 10/15/17 Date: 10/16/17 Time: 112 Allergies Coded Allergies: phenobarbital (01/14/16) HEIGHT- FT: 4 IN: 5.00 K.998 VTE General Information Labs: Laboratory Tests 10/16 10/15 0545 1546 Hematology Hgb (12.2 - 16.2 g/dL) 13.3 14.6 Hct (37.0 - 47.0 %) 43.0 45.8 Plt Count (142 - 424 K/mm3) 184 220 Disclaimer The following section includes nursing documentation that has been pulled in for pharmacy review. Patient's VTE score: 3 Patient's VTE Risk: LOW RISK Clinical trial participant? No VTE prophylaxis NQF [id number] VTE prophylaxis ordered? Yes Type of prophylaxis/treatment: SEBASTIAN at [id number]
[2017-10-17] VITALS (8 sets, daily range): BP systolic 93–107; BP diastolic 62–70
[2017-10-17 09:37] LABS: ARTERIAL PO2 89.1 MMHG (80-100)
[2017-10-17 09:38] LABS: ALLEN'S TEST ACCEPTABLE; ARTERIAL ABE 5.9 MMOL/L (-2.4-+2.3); ARTERIAL TCO2 41.7 MMOL/L (23-27); OXYGEN 50%; PRESSURE SUPPORT 20; VENT RATE 20
--- NOTE | 2017-10-17 10:16 | ACUTE CARE PROGRESS NOTE (QUA) ---
Progress Notes Subjective Date 10/17/17 Time 1010 Note Patient still sedated, nurses noted several runs of V-tach overnight. Objective Findings Laboratory Tests 10/17/17 0930: ABG pH 7.01 *L, ABG pCO2 (Temp Corrct 150.9 H, ABG pO2 (Temp Correct 89.1, ABG HCO3 37.1 H, ABG Total CO2 41.7 H, ABG O2 Sat (Calculated) 96.1, ABG Base Excess 5.9 H, James Test ACCEPTABLE, Vent Rate 20, POC PEEP 10, Pressure Support 20, Blood Gas Comments RIGHT RADIAL Vital Signs Date Time Temp Pulse Resp B/P Pulse O2 O2 Flow FiO2 Ox Delivery Rate 10/17 0655 6 10/17 0643 50 10/17 0627 6 10/17 0600 132 95/62 97 OXYGEN 6 10/17 0500 6 10/17 0500 134 94/64 97 OXYGEN 6 10/17 0400 135 96/64 97 OXYGEN 6 10/17 0300 6 10/17 0300 137 28 93/65 97 OXYGEN 6 10/17 0200 134 28 98/70 90 OXYGEN 6 10/17 0200 98.5 134 26 98/70 93 6 10/17 0155 6 10/17 0100 6 10/17 0100 98.5 100 26 107/63 93 OXYGEN 6 10/17 0000 6 10/17 0000 98 28 106/63 93 OXYGEN 6 10/16 2300 6 10/16 2300 98 28 106/62 93 OXYGEN 6 10/16 2225 6 10/16 2200 99 26 111/66 94 OXYGEN 6 10/16 2100 6 10/16 2100 101 26 102/62 93 OXYGEN 6 10/16 2039 6 10/16 2013 6 10/16 2000 98.2 100 24 107/63 90 OXYGEN 6 10/16 1950 98.2 100 26 107/63 94 6 10/16 1930 92 28 107/66 91 OXYGEN 6 10/16 1845 99.7 100 40 91/58 91 OXYGEN 10/16 1800 98.9 97 39 100/66 92 OXYGEN 10/16 1749 91 OXYGEN 10/16 1743 98.8 97 36 114/69 91 10/16 1700 98.8 97 36 114/69 91 OXYGEN 10/16 1600 99.4 100 37 107/68 91 OXYGEN 10/16 1530 99.6 97 32 106/65 92 OXYGEN 10/16 1500 99 98/66 10/16 1455 91 93/61 10/16 1450 92 89/59 10/16 1445 91 79/53 10/16 1440 92 71/47 10/16 1435 94 75/48 10/16 1430 96 74/50 10/16 1400 99.3 104 35 105/68 92 OXYGEN 10/16 1353 6 10/16 1300 99.5 97 30 122/73 93 OXYGEN 10/16 1200 6 10/16 1200 99.0 90 32 108/75 93 OXYGEN 10/16 1100 99.3 97 36 103/67 92 OXYGEN I&O Past 24 Hrs-ending at 0700 10/17 0700 Intake Total 1645 Output Total 800 Balance 845 Last VS-Temp:98.5 B/P:95/62 Pulse:132 Resp:28 SaO2:97 OXYGEN Last weight lbs:103 oz:1 K.748 Method:Bed Scales Exam General appearance: Sedated, does not wake up to painful stimuli Cardiovascular: tachycardia Respiratory: diminished breath sounds Assessment/Plan Problem List 1. Acute respiratory failure with hypercapnia Status: Acute 2. Elevated troponin Status: Acute 3. Acute non-ST segment elevation myocardial infarction Status: Chronic 4. Leukocytosis Status: Acute 5. Chronic obstructive lung disease Status: Chronic 6. Altered mental status 7. Acute respiratory acidosis 8. Coronary atherosclerosis Status: Chronic 9. History of atrial fibrillation 10. CHF (congestive heart failure), NYHA class IV Status: Resolved 11. Tobacco use Status: Chronic 12. GERD (gastroesophageal reflux disease) Patient condition Deteriorating This inpt stay is expected to cross 2 MNs from start of care Yes Comments: Patient has continued to decline. Discussed poor prognosis with family. They agree that patient would want to have comfort measures only at this time. Plan to discontinue Bipap use and change to comfort measures only. at 1015
--- NOTE | 2017-10-19 21:03 | DISCHARGE SUMMARY STANDARD ---
Discharge Summary ([facility]2) Date of admission: 10/15/17 Date of discharge: 10/17/17 Problem List: 1. Acute respiratory failure with hypercapnia 2. Elevated troponin 3. Acute non-ST segment elevation myocardial infarction 4. Leukocytosis 5. Chronic obstructive lung disease 6. Altered mental status 7. Acute respiratory acidosis 8. Coronary atherosclerosis 9. History of atrial fibrillation 10. CHF (congestive heart failure), NYHA class IV 11. Tobacco use 12. GERD (gastroesophageal reflux disease) History of present illness: Ms. Alfonso is a 77yo female with oxygen dependent COPD. She still smoked. Her daughter stated she had been feeling poorly for a few days. She called her daughter to come and sit with her because she was scared. Her daughter stated she had to go to work so her granddaughter came to sit with her. When she got home from work around 4:30pm, the patient's status declined rapidly. She started complaining that "it hurt" and held her chest and then got extremely SOA and became nonresponsive. Her family called 911 and she was transported to the ER. She had had a LGF and productive cough. She was evaluated in the ER and her cardiac enzymes were elevated, her CO2 was elevated, and her WBC was elevated. She was started on abx and BIPAP. Dr. Ferguson was consulted but stated he would not take her to the blood bank laboratory professional with her respiratory status. Her daugther stated she had not been awake all night. Exam on admission: General appearance: Pt not responsive, on BIPAP Eyes: PERRLA ENT: nose normal, pharynx normal, dry mucous membranes Neck: non-tender, supple Cardiovascular: regular rate & rhythm Respiratory: diminished breath sounds bilaterally ABD: non-distended, normal bowel sounds, no rebound, soft, no tenderness, no guarding Extremities: no peripheral edema Skin: normal color Hospital Course: The patient's CXR showed COPD. She was placed on BIPAP d/t her hypercapnia and was started on abx d/t an elevated WBC. Her family did not want her to be intubated. Her troponin I was elevated and it was felt she had had a NSTEMI. She remained sedated throughout her stay. She had some runs of V-tach. She continued to decline and her family agreed to start comfort measures only. Her BIPAP was discontinued and a venti mask was placed. The patient at 1845 on 10/17/17. Disposition: Patient at 210
== END 2017-10-17 18:45 | disposition expired ==
LOC: ER 15:40 → 2ND 17:04 → ER 17:04 → 2ND 18:09
PROVIDERS: Emergency Medicine; Family Medicine
PROC: 5A09457 Assistance with Respiratory Ventilation, 24-96 Consecutive Hours, Continuous Positive Airway Pressure (ICD-10-PCS; principal; 2017-10-15)
DX: I21.4 Non-ST elevation (NSTEMI) myocardial infarction (principal); J96.02 Acute respiratory failure with hypercapnia; E87.2 Acidosis; Z72.0 Tobacco use; I50.9 Heart failure, unspecified; J44.9 Chronic obstructive pulmonary disease, unspecified; I48.91 Unspecified atrial fibrillation; Z99.81 Dependence on supplemental oxygen
CPT/HCPCS: J0456